=== PATIENT | male | born 1945 | race Caucasian/White ===

== ENCOUNTER 2019-06-22 06:20 | Day surgery (SDC) | payer OTHER ==
[2019-06-17 10:16] VITALS: BMI 28.3
[2019-06-22] MEDS ORDERED: oxyCODONE HCL 5 MG TABLET PO PRN (06:56)
[2019-06-22] MEDS ORDERED: ONDANSETRON 4 MG/2 ML VIAL IVPUSH PRN (06:56)
[2019-06-22] MEDS ORDERED: LACTATED RINGERS SOLUTION 1,000 ML IV SCH (07:00)
[2019-06-22] MEDS ORDERED: PROPOFOL 20 ML ONE (07:06)
[2019-06-22] MEDS ORDERED: MIDAZOLAM HCL 2 MG/2 ML SINGLE DOSE VIAL ONE (07:06)
[2019-06-22] MEDS ORDERED: POVIDONE-IODINE 5% OPHTHALMIC PREP 30 ML SOLUTION ONE (07:17)
[2019-06-22] MEDS ORDERED: TETRACAINE 0.5% OPHTH SOLN 2 ML BOTTLE ONE (07:17)
[2019-06-22] MEDS ORDERED: ERYTHROMYCIN 0.5% OPHTHALMIC OINTMENT 3.5 GM TUBE ONE (07:17)
[2019-06-22] MEDS ORDERED: BUPIVACAINE HCL/PF 0.5% (5MG/ML) 10 ML VIAL ONE (07:18)
[2019-06-22] MEDS ORDERED: LIDOCAINE 1%/EPI 1:100000 (20 ML MULTI DOSE VIAL) ONE (07:18)
[2019-06-22] MEDS ORDERED: ceFAZolin SODIUM 1 GM VIAL ONE (07:53)
[2019-06-22 08:53] VITALS: TEMP 97.4
[2019-06-22] MEDS ORDERED: ONDANSETRON 4 MG/2 ML VIAL ONE (09:12)
[2019-06-22 09:56] VITALS: PULSE 64
[2019-06-22] MEDS ORDERED: PROMETHAZINE HCL 25 MG/1 ML VIAL ONE (10:11)
[2019-06-22 11:56] VITALS: BP 141/84
--- NOTE | 2019-06-22 12:38 | OP ---
DATE OF OPERATION: 06/22/2019 PREOPERATIVE DIAGNOSIS: Ptosis of the left upper lid. PROCEDURE PERFORMED: Major muscle resection, left upper lid, and repair of ptosis. SURGEON: Shannan Renteria MD ANESTHESIA: Local with sedation. COMPLICATIONS: None. BLOOD LOSS: Less than 1 mL. DESCRIPTION OF PROCEDURE: The patient was brought to the operating room and placed on the operating room table. Vital signs were monitored by Anesthesia. Tetracaine was placed in both eyes. A time-out was performed and intravenous sedation was administered. Xylocaine 2% with 1:100,000 epinephrine was injected for a total of 0.5 mL subconjunctivally at the superior tarsus after lid eversion and centrally and subcutaneously in the left upper lid. The patient was prepped and draped in the usual sterile fashion after massage for hemostasis and the following procedure was performed: A 4-0 silk traction suture was placed through the central lid margin, clamped, and the lid was inverted over a Desmarres retractor. The caliper was used, which was checked against a ruler for accuracy and approximately 4.1 mm above the central tarsal plate a carri was made and then 7 mm nasal and 7 mm temporal to this 2 additional cam were made. A 0.3 forceps were then used to tent the conjunctiva up away from the levator muscle, with Major muscle presumably attached to the conjunctiva. This was . Then a 6-0 silk suture was passed through each of the 3 cam and a 6-0 silk suture was used in a quadrilateral fashion to elevate the conjunctiva, Major resection. The Desmarres was removed. A Putterman clamp was then placed over the resected tissue. There was no incorporation of the layer as judged by the skin being distracted in the opposite direction. The Putterman was clamped and then a 6-0 plain suture running from temporal to nasal was passed 1.5 mm away from the clamp. The resected tissue within the clamp was resected with a 15 blade, paying careful attention not to cut the 6-0 plain suture, and then the same arm of the double-armed suture was run back in a baseball fashion. The initial from temporal to nasal was in a mattress fashion and from nasal to temporal was in a baseball fashion, closing the resection, shortening Major muscle. Each arm of the suture was then passed through the conjunctiva, and then each arm was passed through full-thickness eyelid where the suture was tied externally in the temporal eyelid. There was good hemostasis. Antibiotic irrigation was used. Erythromycin ointment was placed on the eye and on the suture, left upper lid, and the patient was taken to the recovery room in stable condition. SHANNAN RENTERIA M.D. ANGELITO/[id number]
--- NOTE | 2019-06-28 15:50 | PATH ---
Surgical Pathology Report Patient Name: ALICIA DORAN [facility]. Rec. #: [id number] /Age/Gender: 1945 (Age: 73) / M Account: [id number] Location: [facility] Taken: 06/22/2019 Received: 06/22/2019 Reported: 06/28/2019 Physicians: Td Covington Specimen(s) Received LEFT UPPER EYELID SKIN Clinical History Ptosis left upper eyelid Final Diagnosis LEFT UPPER EYELID SKIN, RESECTION: EYELID TISSUE/MUCOSA SHOWING CHRONIC INFLAMMATION AND FIBROSIS. Electronically Signed Magda Charles M.D. Gross Description Received in formalin, labeled "left upper eyelid" is a 1.6 x 0.2 x 0.1 cm portion of dark burrows tissue. An undesignated black suture is present within the tissue. The specimen is sectioned and entirely submitted in one cassette.
== END 2019-06-22 11:55 | disposition home or self-care (01) ==
LOC: FASU 06:20
PROVIDERS: ATTEND Ophthalmology
PROC: 08SP0ZZ Reposition Left Upper Eyelid, Open Approach (ICD-10-PCS; principal; 2019-06-22 07:53)
DX: H02.422 Myogenic ptosis of left eyelid (principal)
CPT/HCPCS: 88304-TC; 94760